=== PATIENT | female | born 1985 | race Caucasian/White ===

== ENCOUNTER 2016-10-19 02:55 | Emergency (ER) | payer BC ==
--- NOTE | ~2016-10-19 | CT2 ---
[facility] A Service of [facility] & [facility] RADIOLOGY TEXT RESULTS PATIENT: MARLO SIERRA LOCATION: [facility] : [birth year] UNIT #: [id number] AGE: [address]: Ankit Salazar MD SEX: F ORDER DR: [id number] [facility] [address] [place], [place] [address] [id number] E MR#: [id number] #: [id number] NAME: MARLO SIERRA : 1985 SEX: F STUDY DATE/TIME: 10/19/2016 6:03 UNIT: DERIC ROOM: STUDY DESCRIPTION: CT Abd and Pelv W Cont Attending Physician: Ankit Salazar Ordering Physician: Jonathan Salazar M.D. Primary Care Physician: Primary Care Physician No MEDICAL IMAGING REPORT This report is preliminary unless electronic signature is present EXAM CT abdomen and pelvis with IV contrast COMPARISON None INDICATIONS 31-year-old female with generalized abdominal pain for [address] exam was performed with one or more of the following radiation dose reduction techniques: automatic exposure control, adjustment of mA and/or kV according to patient size, and iterative reconstruction. FINDINGS Axial CT imaging of the abdomen and pelvis was performed after IV administration of 100 milliliters of Isovue-370. Coronal and sagittal reformats were constructed. There is a tiny fat-containing umbilical hernia without inflammatory change or internal bowel. No acute fractures or suspicious osseous lesions. Small posterior disc protrusion L5-S1. Degenerative endplate change and anterior osteophyte formation at T11-T12. Minimal dependent atelectasis in both lung bases. There is a benign cyst versus hemangioma in the posterior seventh right hepatic lobe measuring 1 cm. Separate low-density lesion in the right hepatic lobe measures up to 7 mm, most consistent with a benign cyst. Gallbladder is fluid distended but otherwise normal. Pancreas is within normal limits. There is top normal size of the spleen. Adrenal glands are within normal limits. No evidence of hydronephrosis or hydroureter. Urinary bladder is markedly distended. Expected configuration of intrauterine contraceptive device. Simple cyst in the left ovary measures up to 2.3 cm. Separate indeterminate density hypoattenuating structure in the right ovary measuring 1.7 cm, most likely representing a proteinaceous or hemorrhagic cyst. Moderate stool burden seen in the sigmoid colon and rectum. No STS. [facility] A Service of [facility] RADIOLOGY TEXT RESULTS PATIENT: MARLO SIERRA LOCATION: [facility] : [birth year] UNIT #: [id number] AGE: [address]: Ankit Salazar MD SEX: F ORDER DR: evidence of bowel obstruction or acute inflammatory change. The appendix is within normal limits. No free fluid or pneumoperitoneum. The abdominal aorta is normal in course and caliber, patency of its main branches. There is mild bilateral pelvocaliectasis and there is mild intrahepatic diffuse periportal edema, perhaps due to overall increased fluid volume. No evidence of venous thrombosis. Main branches of the abdominal aorta appear patent. No evidence of adenopathy. IMPRESSION 1. Marked fluid distension of the urinary bladder with bilateral pelvocaliectasis and mild intrahepatic periportal edema. This may reflect increased volume status. No definite acute abnormality within the abdomen, pelvis or imaged lower chest. 2. Benign cysts and/or hemangiomas in the liver as described. 3. Intrauterine contraceptive device appears adequately positioned. 4. Small posterior disc protrusion L5-S1. 5. Simple cyst in the left ovary. Indeterminate hypoattenuating lesion measuring 1.7 cm in the right ovary which statistically most likely represents a hemorrhagic cyst or proteinaceous cyst. One could consider outpatient pelvic ultrasound in 6 to 8 weeks to further evaluate. No free fluid. Dictated by... Salvador Sin M.D. THIS IS AN ELECTRONICALLY VERIFIED REPORT Salvador Sin M.D. at 10/25/2016 7:13 AM Rob TD: 10/19/2016 07:13 JOB #: [id number] MEDICAL IMAGING REPORT Page 1 of 1 COPY
[~2016-10-19 02:55] MED LIST: ABILIFY5 MG PO; ATIVAN0.5 MG PO; CYMBALTA PO
[2016-10-19 04:01] LABS: URINE SOURCE CLEAN CATCH
[2016-10-19 04:30] LABS: BASOPHIL# 0.1 X10e3 (0-0.3); BASOPHIL% 0.8 % (0-2.5); EOSINOPHIL# 0.1 X10e3 (0-0.7); EOSINOPHIL% 1.9 % (0.0-7.0); HEMATOCRIT 41.6 % (35.0-45.0); HEMOGLOBIN 13.5 gm/dL (12.0-16.0); LYMPHOCYTE# 1.9 X10e3 (1.0-3.5); LYMPHOCYTE% 27.8 % (17.0-45.0); MEAN CELL VOLUME 87.6 FL (83-96); MEAN CORPUSCULAR HEMOGLOBIN 28.5 PG (28-34); MEAN CORPUSCULAR HGB CONC 32.5 g/dL (30-36); MEAN PLATELET VOLUME 9.4 FL (6.5-11.5); MONOCYTE# 0.4 X10e3 (0-1.0); MONOCYTE% 5.7 % (3.0-12.0); NEUTROPHIL# 4.3 X10e3 (1.5-7.1); NEUTROPHIL% 63.8 % (40-75); PLATELET COUNT 187 X10e3 (140-420); RED BLOOD COUNT 4.74 X10e (3.90-5.30); RED CELL DISTRIBUTION WIDTH 12.8 % (11.0-15.5); WHITE BLOOD COUNT 6.8 X10e3 (4.0-10.5)
[2016-10-19 04:31] LABS: DIFF IND NO
[2016-10-19 04:43] LABS: URINE APPEARANCE CLEAR; URINE BILIRUBIN NEG (NEG); URINE BLOOD NEG (NEG); URINE COLOR YELLOW; URINE GLUCOSE NEG (NEG); URINE KETONE NEG (NEG); URINE LEUKOCYTE ESTERASE 1+ (NEG); URINE NITRATE NEG (NEG); URINE PROTEIN NEG (NEG); URINE SPECIFIC GRAVITY 1.015 (1.003-1.035); URINE UROBILINOGEN 0.2 MG/DL (NEG)
[2016-10-19 04:46] LABS: CULTURE INDICATED? YES; URBCS1 AUWI 0-2 /[HPF] (0-2); URINE BACTERIA AUWI 1+ (NEGATIVE); URINE SQUAMOUS EPITHELIAL CELL FEW /[HPF]
[2016-10-19 04:48] LABS: ALBUMIN SERUM 4.1 g/dL (3.5-5.0); BILIRUBIN, DIRECT 0.1 mg/dL (0.0-0.2); BILIRUBIN,INDIRECT 0.4 mg/dL (0.0-0.9); BILIRUBIN,TOTAL 0.5 mg/dL (0.2-2.0); CREATININE SERUM 0.5 mg/dL (0.6-1.4); GLOM FILT RATE Estimated 129.9 mL/min (>60); POTASSIUM 3.5 mmol/L (3.5-5.1); PROTEIN TOTAL SERUM 6.6 g/dL (6.0-8.3)
== END 2016-10-19 07:27 | disposition home or self-care (01) ==
LOC: CED 02:55
DX: N83.201 Unspecified ovarian cyst, right side (principal); N30.00 Acute cystitis without hematuria; F32.9 Major depressive disorder, single episode, unspecified; F17.210 Nicotine dependence, cigarettes, uncomplicated; Z79.899 Other long term (current) drug therapy
CPT/HCPCS: 36415; 74177; 80048; 80076; 81003; 83690; 84703; 85025; 87086; 99284; Q9967